=== PATIENT | male | born 1970 | race African-American/Black ===

== ENCOUNTER 2018-02-17 22:13 | Emergency (ER) | payer SELFPAY ==
[~2018-02-17] VITALS: Ht 193 cm; Wt 142.7 kg
[2018-02-17 22:15] VITALS: BP 151/91
[2018-02-17] MEDS ORDERED: IBUPROFEN 800 MG TABLET PO STA (22:35)
[2018-02-17] MEDS ORDERED: IBUPROFEN 200 MG TABLET ONE (22:41)
== END 2018-02-17 23:09 | disposition home or self-care (01) ==
LOC: ED 23:08
DX: S43.51XA Sprain of right acromioclavicular joint, initial encounter (principal); S16.1XXA Strain of muscle, fascia and tendon at neck level, initial encounter; F17.210 Nicotine dependence, cigarettes, uncomplicated; V50.6XXA Passenger in pick-up truck or van injured in collision with pedestrian or animal in traffic accident, initial encounter; Y93.89 Activity, other specified; Y99.8 Other external cause status; Y92.89 Other specified places as the place of occurrence of the external cause
CPT/HCPCS: 99283

== ENCOUNTER 2018-07-20 13:51 | Emergency (ER) | payer MEDICAID ==
[~2018-07-20] VITALS: Ht 193 cm; Wt 145.2 kg
[2018-07-20] MEDS ORDERED: ASPIRIN 81 MG TABLET CHEW PO ONE (14:00)
[2018-07-20] MEDS ORDERED: SODIUM CHLORIDE FLUSH 10ML SYR IVF ONE (14:00)
[2018-07-20 14:38] LABS: BASOPHILS # (AUTO) 0.06 x10^3/uL (0-0.1); BASOPHILS % (AUTO) 1 % (0-1); EOSINOPHILS # (AUTO) 0.27 x10^3/uL (0-0.4); EOSINOPHILS % (AUTO) 3 % (1-7); LYMPHOCYTES # (AUTO) 3.18 x10^3/uL (1-3.4); LYMPHOCYTES % (AUTO) 35 % (22-44); MD NO; MEAN CORPUSCULAR HEMOGLOBIN 26.8 pg (27.5-34.5); MEAN CORPUSCULAR HGB CONC 33.3 g/dL (33.2-36.2); MEAN CORPUSCULAR VOLUME 80.5 fL (81-97); MEAN PLATELET VOLUME 9.7 fL (7.4-10.4); MONOCYTES # (AUTO) 0.69 x10^3/uL (0.2-0.8); MONOCYTES % (AUTO) 8 % (2-9); NEUTROPHILS # (AUTO) 4.88 x10^3/uL (1.8-6.8); NEUTROPHILS % (AUTO) 54 % (42-75); PLATELET COUNT 283 x10^3/uL (130-400); RED BLOOD COUNT 5.65 x10^6/uL (4.38-5.82); RED CELL DISTRIBUTION WIDTH 13.6 % (9.4-14.8)
[2018-07-20 14:50] LABS: ALBUMIN 3.9 g/dL (3.4-5.0); ANION GAP 6 mmol/L (5-15); CALCIUM 8.9 mg/dL (8.5-10.1); CHLORIDE 107 mmol/L (98-107)
[2018-07-20 14:54] LABS: ALANINE AMINOTRANSFERASE 45 U/L (12-78); ALKALINE PHOSPHATASE 110 U/L (45-117); BILIRUBIN,TOTAL 0.3 mg/dL (0.2-1.0); CREATININE 0.99 mg/dL (0.7-1.3); TOTAL PROTEIN 7.9 g/dL (6.4-8.2)
--- NOTE | 2018-07-20 15:35 | NUR ---
Harsha king in [facility] - 07/20/18 at 1619 by LYNETTE HUMAN RESOURCES INTERN: CALLED FOR ROOM, NO ANSWER
--- NOTE | 2018-07-20 15:58 | NUR ---
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
--- NOTE | 2018-07-20 15:59 | NUR ---
Harsha king in [facility] - 07/20/18 at 1619 by LYNETTE EVENT PLANNING INTERN: CALLED FOR ROOM, NO ANSWER
[2018-07-20] MEDS ORDERED: ASPIRIN 81 MG TABLET CHEW ONE (16:05)
--- NOTE | 2018-07-20 16:15 | NUR ---
REPORT RECEIVED FROM BREAK DERIK LAND. ASSUMED CARE OF PT. PT CURRENTLY RESTING ON GURNEY. NAD NOTED. SKIN WARM AND DRY. RESP EVEN AND UNLABORED. PT CURRENTLY DENIES PAIN. PT ON CONT BP, CRADIAC AND O2 MONITORS. CALL LIGHT WITHIN REACH. WILL CONT TO MONITOR PT.
[2018-07-20] MEDS ORDERED: LISINOPRIL 10 MG TABLET PO ONE (16:30)
[2018-07-20 17:03] LABS: TROPONIN I < 0.015 ng/mL (0.000-0.045)
--- NOTE | 2018-07-20 17:30 | NUR ---
PT CURRENTLY RESTING ON GURNEY. NAD NOTED. SKIN PWD. RESP EVEN AND EQAUL. PT AWARE THAT WE ARE WAITING FOR LAB/IMAGING RESULTS. PT ON CONT BP, CARDIAC AND O2 MONITORS. CALL LIGHT WITHIN REACH. WILL CONT TO MONITOR PT.
[2018-07-20] MEDS ORDERED: LISINOPRIL 10 MG TABLET ONE (18:11)
--- NOTE | 2018-07-20 18:30 | NUR ---
INOCENTE COLLAZO AT BEDSIDE FOR RECHECK/EXPLANATION OF RESULTS. PT AO X 4. SKIN WARM AND DRY AND APPROPRIATE FOR ETHINICITY. CALL LIGHT WITHIN REACH. WILL CONT TO MONITOR PT.
[2018-07-20 18:41] VITALS: BP 145/98
== END 2018-07-20 18:43 | disposition home or self-care (01) ==
LOC: ED 16:52
DX: R07.89 Other chest pain (principal); I10 Essential (primary) hypertension; F17.210 Nicotine dependence, cigarettes, uncomplicated
CPT/HCPCS: 36415; 71046; 80053; 83880; 84484; 85025; 93005; 99284